=== PATIENT | female | born 1960 | race American Indian/Alaskan Native ===

== ENCOUNTER 2018-03-20 02:10 | Inpatient (IN) | payer OTHER ==
[2018-03-20 03:33] LABS: Basophils # (Auto) 0.1 K/mm3 (0.0-0.1); Basophils % (Auto) 0.8 % (0.0-1.8); Eosinophils # (Auto) 0.3 K/mm3 (0.0-0.4); Eosinophils % (Auto) 4.9 % (0.0-4.3); Hematocrit 36.1 % (30.3-42.9); Hemoglobin 11.7 gm/dl (10.1-14.3); Lymphocytes % (Auto) 13.9 % (13.4-35.0); Mean Corpuscular HGB Conc 33 % (30-34); Mean Corpuscular Hemoglobin 30 pg (28-32); Mean Corpuscular Volume 92 fl (79-97); Monocytes # (Auto) 0.6 K/mm3 (0.0-0.8); Monocytes % (Auto) 8.1 % (0.0-7.3); Platelet Count 293 K/mm3 (140-440); Red Blood Count 3.92 M/mm3 (3.65-5.03)
[2018-03-20 04:15] LABS: Alanine Aminotransferase 17 units/L (7-56); Albumin 4.4 g/dL (3.9-5); BUN/Creatinine Ratio 9; Blood Urea Nitrogen 6 mg/dL (7-17); Calcium 9.5 mg/dL (8.4-10.2); Hemolysis Index 0; Lipase 25 units/L (13-60)
[2018-03-20 04:23] LABS: INR 0.88 (0.87-1.13)
[2018-03-20] MEDS ORDERED: CARAFATE PO ONE (06:31)
[2018-03-20] MEDS ORDERED: TYLENOL PO ONE (06:31)
[2018-03-20] MEDS ORDERED: PEPCID IV ONE ×2 (06:31→09:07)
[2018-03-20] MEDS ORDERED: ALUM-MAG HYDROX-SIMETH 200-200-20MG/5ML PO ONE (06:31)
[2018-03-20] MEDS ORDERED: NACL 0.9% 1000 ML 1,000 ML IV ONE (06:31)
--- NOTE | 2018-03-20 06:32 | Emergency Department Report ---
ED Chest Pain HPI - General Chief Complaint: Chest Pain Stated Complaint: STOMACH PAIN CHEST DISCOMFORT Time Seen by Provider: 03/20/18 06:25 Source: patient, RN notes reviewed Mode of arrival: Ambulatory Limitations: No Limitations - History of Present Illness Initial Comments: This is a 57-year-old female who is not known to this provider previously, does not have a local primary care doctor, past medical history includes diabetes, GERD, hypertension, high cholesterol, surgical history for and hysterectomy. Presents to the ER with burning lower abdominal pain which radiates up to her chest. It started at 9:00 last night. Her symptoms are constant. They do not have any exacerbating or relieving factors. She denies nausea, vomiting, diarrhea, constipation, urinary symptoms, fevers, chills, DVT , pulmonary embolus risk factors. No recent aspirin use or cocaine use. MD Complaint: chest pain, other -: Gradual Onset: during rest Pain Location: substernal Pain Radiation: abdomen Quality: other Consistency: constant Improves With: nothing Worsens With: nothing Aspirin use within the Past 7 Days: (0) No - Related Data Allergies Allergy/AdvReac Type Severity Reaction Status Date / Time No Known Allergies Allergy Unverified 03/20/18 02:39 Heart Score - HEART Score History: Slightly suspicious EKG: Non-specific Age: 45-65 Risk factors: > 3 risk factors or hx of atherosclerotic disease Troponin: < normal limit HEART Score: 4 - Critical Actions Critical Actions: 4-6 pts:12-16.6% risk of adverse cardiac event. Should be admitted ED Review of Systems ROS: Stated complaint: STOMACH PAIN CHEST DISCOMFORT Other details as noted in HPI Constitutional: denies: diaphoresis, fever, malaise Eyes: denies: eye discharge ENT: denies: epistaxis Respiratory: denies: cough Cardiovascular: chest pain Gastrointestinal: abdominal pain Genitourinary: denies: dysuria Musculoskeletal: denies: back pain Skin: denies: lesions Neurological: denies: weakness Psychiatric: denies: anxiety ED Past Medical Hx - Past Medical History Previous Medical History?: Yes Hx Hypertension: Yes Hx Diabetes: Yes Hx GERD: Yes (peptic ulcer) Additional medical history: hypercholesterolemia - Surgical History Past Surgical History?: Yes Additional Surgical History: . hysterectomy - Social History Smoking Status: Never Smoker Substance Use Type: None ED Physical Exam - General Limitations: No Limitations General appearance: alert, in no apparent distress - Head Head exam: Present: atraumatic, normocephalic - Eye Eye exam: Present: normal appearance, EOMI. Absent: nystagmus - ENT ENT exam: Present: normal exam, normal orophraynx, mucous membranes moist, normal external ear exam - Neck Neck exam: Present: normal inspection, full ROM. Absent: tenderness, meningismus - Respiratory Respiratory exam: Present: normal lung sounds bilaterally. Absent: respiratory distress - Cardiovascular Cardiovascular Exam: Present: regular rate, normal rhythm, normal heart sounds. Absent: bradycardia, tachycardia, irregular rhythm, systolic murmur, diastolic murmur, rubs, gallop - GI/Abdominal GI/Abdominal exam: Present: soft. Absent: distended, tenderness, guarding, rebound, rigid, pulsatile mass - Extremities Exam Extremities exam: Present: normal inspection, full ROM, normal capillary refill , other (2+ pulses noted in the bilateral upper, lower extremities. Compartments soft. No long bony tenderness. The pelvis is stable.). Absent: tenderness, pedal edema, joint swelling, calf tenderness - Back Exam Back exam: Present: normal inspection, full ROM. Absent: tenderness, CVA tenderness (R), paraspinal tenderness, vertebral tenderness - Neurological Exam Neurological exam: Present: alert, oriented X3, CN II-XII intact, other ( Extraocular movements intact. Tongue midline. No facial droop. Facial sensation intact to light touch in the V1, V2, V3 distribution bilaterally. 5 and 5 strength in 4 extremities.. Sensation is intact to light touch in 4 extremities.). Absent: motor sensory deficit - Psychiatric Psychiatric exam: Present: normal affect, normal mood - Skin Skin exam: Present: warm, dry, intact, normal color. Absent: rash ED Course Vital Signs 03/20/18 03/20/18 03/20/18 02:26 02:35 04:16 Temperature 98.6 F 98.6 F Pulse Rate 85 85 77 Respiratory 14 20 23 Rate Blood Pressure 150/88 150/88 144/87 O2 Sat by Pulse 99 99 99 Oximetry 03/20/18 03/20/18 03/20/18 04:46 05:16 06:00 Temperature Pulse Rate 79 76 70 Respiratory 19 21 16 Rate Blood Pressure 132/77 125/72 129/74 O2 Sat by Pulse 99 98 100 Oximetry 03/20/18 03/20/18 03/20/18 06:16 06:46 08:32 Temperature Pulse Rate 70 70 Respiratory 18 16 20 Rate Blood Pressure 129/74 147/76 O2 Sat by Pulse 100 98 Oximetry - Reevaluation(s) Reevaluation #1: 03/20/18 11:24 Hospital physician, Dr. Stone has accepted the patient to the medical service. Lactic acid level is unremarkable JUAN LUIS score - Juan Luis Score Age > 65: (0) No Aspirin use within the Past 7 Days: (0) No 3 or more CAD Risk Factors: (1) Yes 2 or more Angina events in past 24 hrs: (0) No Known CAD with more than 50% Stenosis: (0) No Elevated Cardiac Markers: (0) No ST Deviation Greater than 0.5mm: (0) No JUAN LUIS Score: 1 ED Medical Decision Making - Lab Data Result diagrams: 03/20/18 03:15 03/20/18 03:15 Vital Signs 03/20/18 03/20/18 03/20/18 02:26 02:35 04:16 Temperature 98.6 F 98.6 F Pulse Rate 85 85 77 Respiratory 14 20 23 Rate Blood Pressure 150/88 150/88 144/87 O2 Sat by Pulse 99 99 99 Oximetry 03/20/18 03/20/18 03/20/18 04:46 05:16 06:00 Temperature Pulse Rate 79 76 70 Respiratory 19 21 16 Rate Blood Pressure 132/77 125/72 129/74 O2 Sat by Pulse 99 98 100 Oximetry 03/20/18 03/20/18 06:16 06:46 Temperature Pulse Rate 70 70 Respiratory 18 16 Rate Blood Pressure 129/74 147/76 O2 Sat by Pulse 100 98 Oximetry Labs 03/20/18 03/20/18 03/20/18 03:15 03:15 03:15 WBC 6.8 RBC 3.92 Hgb 11.7 Hct 36.1 MCV 92 MCH 30 MCHC 33 RDW 15.0 Plt Count 293 Lymph % (Auto) 13.9 [place] % (Auto) 8.1 H Eos % (Auto) 4.9 H Baso % (Auto) 0.8 Lymph # 1.0 L [place] # 0.6 Eos # 0.3 Baso # 0.1 Seg Neutrophils % 72.3 H Seg Neutrophils # 4.9 PT 12.4 INR 0.88 Sodium 139 Potassium 3.9 Chloride 103.2 Carbon Dioxide 25 Anion Gap 15 BUN 6 L Creatinine 0.7 Estimated GFR > 60 BUN/Creatinine Ratio 9 Glucose 143 H Calcium 9.5 Total Bilirubin 0.20 AST 19 ALT 17 Alkaline Phosphatase 69 Troponin T < 0.010 Total Protein 7.3 Albumin 4.4 Albumin/Globulin Ratio 1.5 Lipase 25 Urine Color Urine Turbidity Urine pH Ur Specific [place] Urine Protein Urine Glucose (UA) Urine Ketones Urine Blood Urine Nitrite Urine Bilirubin Urine Urobilinogen Ur Leukocyte Esterase Urine WBC (Auto) Urine RBC (Auto) Urine Mucus 03/20/18 03/20/18 03/20/18 06:05 07:10 08:42 WBC RBC Hgb Hct MCV MCH MCHC RDW Plt Count Lymph % (Auto) [place] % (Auto) Eos % (Auto) Baso % (Auto) Lymph # [place] # Eos # Baso # Seg Neutrophils % Seg Neutrophils # PT INR Sodium Potassium Chloride Carbon Dioxide Anion Gap BUN Creatinine Estimated GFR BUN/Creatinine Ratio Glucose Calcium Total Bilirubin AST ALT Alkaline Phosphatase Troponin T < 0.010 < 0.010 Total Protein Albumin Albumin/Globulin Ratio Lipase Urine Color Straw Urine Turbidity Clear Urine pH 5.0 Ur Specific [place] 1.004 Urine Protein <15 mg/dl Urine Glucose (UA) Neg Urine Ketones Neg Urine Blood Neg Urine Nitrite Neg Urine Bilirubin Neg Urine Urobilinogen < 2.0 Ur Leukocyte Esterase Neg Urine WBC (Auto) 1.0 Urine RBC (Auto) 3.0 Urine Mucus Few - EKG Data -: EKG Interpreted by Wa - EKG Data 03/20/18 10:10 EKG #1 demonstrates normal sinus, 81 bpm, left axis deviation, ID interval prolonged, abnormal EKG, this EKG is not a STEMI, EKG #2 was unchanged. - Radiology Data Radiology results: report reviewed, image reviewed CT scan of the chest is negative for pulmonary embolus, aortic disease, significant disease. CT scan of the abdomen and pelvis suggests a small bowel obstruction. - Medical Decision Making Differential diagnosis, including but not limited to: GERD, gastritis, hiatal hernia, aortic disease, acute coronary syndrome, pulmonary embolus, pneumonia, intra-abdominal infection, constipation Assessment and plan: 57-year-old female with multiple cardiovascular risk factors, abnormal EKG, no recent cardiac risk stratification, elevated heart score, and also nonspecific abdominal pain. She is afebrile with reassuring vital signs and no significant abdominal tenderness. She is not vomiting, she is passing gas, and she is tolerating oral feeds. Her clinical history and exam do not appear to be consistent with small bowel obstruction, although her CT scan has suggested that this may be a possibility. She is amenable to hospital admission for cardiac risk stratification as well as serial abdominal exams. I have contacted the general surgeon on-call, Dr. Dmuont, who agrees to follow in consultation, we have placed a page out to the medical service for hospitalist admission. Given the lack of vomiting, passing gas and stool, ability to tolerate oral feeds, it is my pain that the risks of an nasogastric tube outweigh the benefits , and I will not have one inserted at this point in time. Aspirin will be held at this time in case the patient has a change in her clinical abdominal examination. Critical care attestation.: If time is entered above; I have spent that time in minutes in the direct care of this critically ill patient, excluding procedure time. ED Disposition Clinical Impression: Chest pain, Abdominal pain Disposition: [id number] OP ADMIT IP TO THIS HOSP Is pt being admited?: Yes Does the pt Need Aspirin: No Condition: Good Instructions: Chest Pain (ED) Referrals: PRIMARY CARE, [Primary Care Provider] - 3-5 Days
[2018-03-20 07:24] LABS: Bilirubin,Urine NEG (Negative); Blood,Urine NEG (Negative); Color,Urine Straw (Yellow); Mucus,Urine FEW /HPF; Protein,Urine <15 mg/dL mg/dL (Negative); Urobilinogen,Urine < 2.0 mg/dL (<2.0)
[2018-03-20] MEDS ORDERED: ALUM-MAG HYDROX-SIMETH 200-200-20MG/5ML ONE (09:05)
[2018-03-20] MEDS ORDERED: CARAFATE ONE (09:05)
[2018-03-20] MEDS ORDERED: TYLENOL ONE (09:06)
--- NOTE | 2018-03-20 09:28 | Cat Scan Report ---
FINAL REPORT EXAM: CT ANGIO CHEST HISTORY: cp TECHNIQUE: CT angiography of the chest was performed. 100 cc Omnipaque 350 IV was administered. Axial images and coronal and sagittal reformatted images were obtained. PRIORS: None. FINDINGS: There is no aortic dissection seen. There are no filling defects seen within the pulmonary arterial circulation to suggest pulmonary embolism. There is no significant mediastinal or hilar mass seen. There are no pleural effusions seen. The lungs are clear. There is no pneumothorax seen. IMPRESSION: There is no pulmonary embolism or aortic dissection seen.
--- NOTE | 2018-03-20 09:37 | Cat Scan Report ---
FINAL REPORT EXAM: CT ABDOMEN PELVIS W CON HISTORY: lower abdominal pain radiating to the chest TECHNIQUE: CT abdomen and pelvis performed. Images extend from diaphragm to pubic symphysis. IV contrast was administered. Axial images and coronal and sagittal reformatted images were obtained. PRIORS: None. FINDINGS: There are mid to distal dilated small bowel loops with abrupt caliber transition in the pelvic region. Findings are consistent with small bowel obstruction. There is no free intraperitoneal air. There are no abnormal fluid collections seen. The visualized liver, spleen, pancreas, adrenal glands and kidneys demonstrate no significant abnormalities. There is no abdominal aortic aneurysm. The appendix is normal. The bladder is unremarkable. IMPRESSION: Findings are worrisome for high-grade mid to distal small bowel obstruction.
[2018-03-20] MEDS ORDERED: ZOFRAN IV PRN (12:49)
[2018-03-20] MEDS ORDERED: TYLENOL PO PRN (12:49)
[2018-03-20] MEDS ORDERED: PROVENTIL IH PRN (12:49)
[2018-03-20] MEDS ORDERED: SODIUM CHLORIDE FLUSH SYRINGE 10 ML IV PRN (12:49)
[2018-03-20] MEDS: REGLAN PO SCH ×2 (16:36→21:54)
--- NOTE | 2018-03-20 19:46 | History and Physical Report ---
History of Present Illness Date of admission: 03/20/18 12:49 Chief complaint: It hurts right here History of present illness: 57 YO Female with HTN, DM, HLD, Obesity, PUD, GERD presents to ED for evaluation. Pt states that she has experienced pain in her abdomen and in her chest. Upon evaluation, the patient localized the epigastric area as the site of her pain. Pt states that she has experienced abdominal pain over the past 1 day, with persistent symptoms over the past 12 hours. Pain is 5/10, dull, constant, radiates from the loser abdomen to the epigastric region, no exacerbating or alleviating factors. Pt denies fever, chills, chest pain, nausea , vomiting, diarrhea, constipation, urinary symptoms, fevers, chills, prolonged travel/immobility, skin rash, unilateral leg swelling, calf pain, BRBPR, ingestion of food/water from new or different sources, individual/family history of DVT/PE/Blood Clotting disorders. Pt acknowledges flatus and bowel movement within the past 24 hours. Pt seen and evaluated in ED and found to have evidence of PSBO on CT Abdomen pelvis. Pt declines NGT at time of exam. Surgery consulted in ED. Past History Past Medical History: diabetes, GERD, hypertension, hyperlipidemia, other (PUD) Past Surgical History: , hysterectomy Social history: single. denies: smoking, alcohol abuse, prescription drug abuse Family history: diabetes, hypertension Medications and Allergies Allergies Allergy/AdvReac Type Severity Reaction Status Date / Time No Known Allergies Allergy Unverified 03/20/18 02:39 Active Meds: Active Medications Acetaminophen (Tylenol) 650 mg PO Q4H PRN PRN Reason: Pain MILD(1-3)/Fever >100.5/CEJA Last Admin: 03/20/18 16:38 Dose: 650 mg Albuterol (Proventil) 2.5 mg IH Q4H PRN PRN Reason: Shortness Of Breath Metoclopramide HCl (Reglan) 5 mg PO ACHS NAS Last Admin: 03/20/18 16:36 Dose: 5 mg Ondansetron HCl (Zofran) 4 mg IV Q8H PRN PRN Reason: Nausea And Vomiting Sodium Chloride (Sodium Chloride Flush Syringe 10 Ml) 10 ml IV BID NAS Sodium Chloride (Sodium Chloride Flush Syringe 10 Ml) 10 ml IV PRN PRN PRN Reason: LINE FLUSH Review of Systems Constitutional: no weight loss, no weight gain, no fever, no chills Ears, nose, mouth and throat: no ear pain, no ear discharge, no tinnitis, no decreased hearing, no nose pain, no nasal congestion Breasts: no change in shape, no swelling, no mass Cardiovascular: no chest pain, no orthopnea, no palpitations, no rapid/ irregular heart beat Respiratory: no cough, no cough with sputum, no excessive sputum, no hemoptysis , no shortness of breath Gastrointestinal: abdominal pain, no nausea, no vomiting, no diarrhea, no constipation, no hematemesis, no coffee ground emesis, no BRBPR, no melena, no hematochezia, no loss of appetite, no early satiety Genitourinary Female: no pelvic pain, no flank pain, no menorrhagia, no dysuria Rectal: no pain, no incontinence, no bleeding Musculoskeletal: no neck stiffness, no neck pain, no shooting arm pain, no arm numbness/tingling, no low back pain, no shooting leg pain Integumentary: no rash, no pruritis, no redness, no sores, no wounds, no bullae , no lesions, no darkening of skin, no depigmentation Neurological: no head injury, no transient paralysis, no paralysis, no weakness , no parathesias, no numbness, no tingling, no seizures, no headaches, no migraines Psychiatric: no anxiety, no memory loss, no change in sleep habits, no sleep disturbances, no insomnia, no hypersomnia, no change in appetite, no change in libido, no suicidal ideation Endocrine: no cold intolerance, no heat intolerance, no polyphagia, no excessive thirst, no polydipsia, no polyuria, no nocturia Hematologic/Lymphatic: no easy bruising, no easy bleeding, no lymphadenopathy, no lymphedema Allergic/Immunologic: no urticaria, no allergic rhinitis, no wheezing, no persistent infections, no anaphylaxis, no angioedema Exam - Constitutional Vitals: Temp Pulse Resp BP Pulse Ox 98.0 F 70 18 129/72 98 03/20/18 16:20 03/20/18 16:20 03/20/18 16:20 03/20/18 16:20 03/20/18 16:20 General appearance: Present: mild distress. Absent: no acute distress - EENT Eyes: Absent: PERRL, EOM intact, irregular pupil - Neck Neck: Present: supple, normal ROM - Respiratory Respiratory effort: normal Respiratory: bilateral: CTA - Cardiovascular Heart Sounds: Present: S1 & S2. Absent: rub, click - Extremities Extremities: pulses symmetrical, No edema Peripheral Pulses: within normal limits - Abdominal General gastrointestinal: Present: soft, non-distended, hypoactive bowel sounds. Absent: hepatomegaly, splenomegaly, mass, hernia Female genitourinary: Present: normal - Integumentary Integumentary: Present: clear, warm, dry - Musculoskeletal Musculoskeletal: gait normal, strength equal bilaterally - Psychiatric Psychiatric: appropriate mood/affect, intact judgment & insight - Neurologic Neurologic: CNII-XII intact, moves all extremities Results - Labs CBC & Chem 7: 03/20/18 03:15 03/20/18 03:15 Labs: Abnormal lab results 03/20/18 03/20/18 Range/Units 03:15 03:15 [place] % (Auto) 8.1 H (0.0-7.3) % Eos % (Auto) 4.9 H (0.0-4.3) % Lymph # 1.0 L (1.2-5.4) K/mm3 Seg Neutrophils % 72.3 H (40.0-70.0) % BUN 6 L (7-17) mg/dL Glucose 143 H (65-100) mg/dL Assessment and Plan - Patient Problems (1) SBO (small bowel obstruction) Current Visit: Yes Status: Acute Plan to address problem: CT ABdomen pelvis, surgery consulted,Pt declined NG Tube at time of exam, IVF resuscitation, bowel rest (2) Abdominal pain Current Visit: Yes Status: Acute Qualifiers: Abdominal location: epigastric Qualified Code(s): R10.13 - Epigastric pain Plan to address problem: pain control, supportive care, serial abdominal exam, CT Abdomen/Pelvis, bowel rest, (3) DVT prophylaxis Current Visit: Yes Status: Acute Plan to address problem: SCD to BLE while in bed,
--- NOTE | 2018-03-20 20:36 | Consultation ---
HISTORY OF PRESENT ILLNESS: This patient was seen in the Emergency Room this morning. She is a 57-year-old black female. Apparently, she is a 73.8 kilograms. Her BSA is 1.8. She comes because a feeling of pain in the epigastrium and mid left upper quadrant radiating to the chest area. She never had this before. She felt nauseated. She vomited on one or two occasions and bleeding per rectum. She has good bowel movement today. She had no bleeding either. She was seen by our Emergency Room doctor. She had chest CT abdomen and pelvis CT that showed no evidence of any aortic dissection or any pulmonary embolism. Abdominal CT was negative except for? high-grade mid to distal small-bowel obstruction, although on a KUB, nothing specific that I could see. She is known case of diabetes. Her CBC showed a white count of 6.8, hematocrit 36. The protime is 12.4. The INR is 0.88, potassium 3.9, the BUN is 6, creatinine is 0.7, alkaline phosphatase was negative. The patient gives a history of multiple sections. PHYSICAL EXAMINATION: GENERAL: At this point showed a well preserved morbidly obese black female. She is in no distress. She told me that the pain is almost gone now. HEAD AND NECK: Negative. CHEST: Clear. HEART: Sound normal. BREASTS: Symmetrical. No evidence of any specific masses. ABDOMEN: Soft, protuberant, and benign to me. EXTREMITIES: Showed no edema. IMPRESSION: Epigastric pain being improved markedly, nausea and vomiting, the etiology of which is unknown. I believe this need to be addressed further by observation as per our emergency room physician and we will go from there. JOB# [id number] LEO/INA
[2018-03-20] MEDS: SODIUM CHLORIDE FLUSH SYRINGE 10 ML IV SCH (21:54)
[2018-03-21] MEDS: REGLAN PO SCH ×2 (09:01→12:30)
--- NOTE | 2018-03-21 11:07 | XRay Report ---
FINAL REPORT EXAM: XR ABDOMEN 1V AP HISTORY: Ileus ,abdomen pain TECHNIQUE: AP abdominal radiograph. PRIORS: CT of the abdomen and pelvis from 03/20/2018. FINDINGS: No bowel obstruction. No organomegaly or masses. No abnormal calcifications. No acute osseous abnormality. IMPRESSION: No acute intra-abdominal abnormality.
[2018-03-21] MEDS ORDERED: AFLURIA QUAD 2018-2019 SYRINGE IM ONE (12:00)
--- NOTE | 2018-03-21 15:08 | Progress Note ---
Assessment and Plan / SBO (small bowel obstruction) CT ABdomen pelvis showed high grade KAMARI surgery consulted,Pt declined NG Tube at time of exam, IVF resuscitation, repeat abdominal xry showed no abnormality, had BM this am will start on diet, if tolerated will d/c rossana am /Abdominal pain Due to SBO pain control, supportive care, serial abdominal exam /Obesity, dietary recommendation / DVT prophylaxis SCD to BLE while in bed, CT abdomen/pelvis: Findings are worrisome for high-grade mid to distal small bowel obstruction. Subjective Date of service: 03/21/18 Interval history: Pt seen and examined Had BM this am and passing gas improved abdominal pain Objective - Constitutional Vitals: Vital Signs - 12hr 03/21/18 03/21/18 03/21/18 06:20 07:54 11:54 Temperature 98.2 F 98.4 F Pulse Rate 60 67 Respiratory 18 16 Rate Blood Pressure 108/55 127/64 O2 Sat by Pulse 100 100 97 Oximetry General appearance: Present: no acute distress, obese - EENT Eyes: PERRL, EOM intact ENT: hearing intact, clear oral mucosa Ears: bilateral: normal - Neck Neck: supple, normal ROM - Respiratory Respiratory effort: normal Respiratory: bilateral: CTA - Cardiovascular Rhythm: regular Heart Sounds: Present: S1 & S2. Absent: gallop, rub Extremities: pulses intact, No edema, normal color, Full ROM - Gastrointestinal General gastrointestinal: Present: soft, non-tender, non-distended, normal bowel sounds - Integumentary Integumentary: clear, warm, dry - Musculoskeletal Musculoskeletal: 1, strength equal bilaterally - Neurologic Neurologic: moves all extremities - Psychiatric Psychiatric: memory intact, appropriate mood/affect, intact judgment & insight - Labs CBC & Chem 7: 03/22/18 03:50 03/22/18 03:50 - Imaging and cardiology CT scan - abdomen: report reviewed
[2018-03-21] MEDS: SODIUM CHLORIDE FLUSH SYRINGE 10 ML IV SCH (19:30)
[2018-03-21] MEDS: D5NS 1,000 ML IV SCH (23:35)
[2018-03-22] MEDS: SODIUM CHLORIDE FLUSH SYRINGE 10 ML IV SCH ×2 (00:34→09:48)
[2018-03-22 05:14] LABS: Eosinophils # (Auto) 0.5 K/mm3 (0.0-0.4); Eosinophils % (Auto) 13.9 % (0.0-4.3); Hematocrit 32.3 % (30.3-42.9); Hemoglobin 10.7 gm/dl (10.1-14.3); Lymphocytes # (Auto) 1.3 K/mm3 (1.2-5.4); Mean Corpuscular HGB Conc 33 % (30-34); Mean Corpuscular Hemoglobin 30 pg (28-32); Mean Corpuscular Volume 92 fl (79-97); Monocytes # (Auto) 0.5 K/mm3 (0.0-0.8); Platelet Count 267 K/mm3 (140-440); Red Blood Count 3.52 M/mm3 (3.65-5.03); Red Cell Distribution Width 14.5 % (13.2-15.2)
[2018-03-22 05:31] LABS: BUN/Creatinine Ratio 13; Blood Urea Nitrogen 8 mg/dL (7-17); Calcium 8.4 mg/dL (8.4-10.2); Hemolysis Index 2
[2018-03-22] MEDS: D5NS 1,000 ML IV SCH (09:45)
--- NOTE | 2018-03-22 11:03 | Progress Note ---
Subjective Patient Reports: Positive: feels better, flatus, bowel movement Narrative: feels much better , NO GI sx, no nausea on oft diet , can go home talked to case management , to see me in 2 weeks and PRN Objective Vital Signs - 12hr 03/22/18 05:24 Temperature 98.4 F Pulse Rate 81 Respiratory 18 Rate Blood Pressure 133/72 O2 Sat by Pulse 94 Oximetry - Labs 03/22/18 03:50 03/22/18 03:50 Diabetes panel 03/22/18 Range/Units 03:50 Sodium 138 (137-145) mmol/L Potassium 3.9 (3.6-5.0) mmol/L Chloride 102.6 (98-107) mmol/L Carbon Dioxide 27 (22-30) mmol/L BUN 8 (7-17) mg/dL Creatinine 0.6 L (0.7-1.2) mg/dL Glucose 110 H (65-100) mg/dL Calcium 8.4 (8.4-10.2) mg/dL Calcium panel 03/22/18 Range/Units 03:50 Calcium 8.4 (8.4-10.2) mg/dL Pituitary panel 03/22/18 Range/Units 03:50 Sodium 138 (137-145) mmol/L Potassium 3.9 (3.6-5.0) mmol/L Chloride 102.6 (98-107) mmol/L Carbon Dioxide 27 (22-30) mmol/L BUN 8 (7-17) mg/dL Creatinine 0.6 L (0.7-1.2) mg/dL Glucose 110 H (65-100) mg/dL Calcium 8.4 (8.4-10.2) mg/dL Adrenal panel 03/22/18 Range/Units 03:50 Sodium 138 (137-145) mmol/L Potassium 3.9 (3.6-5.0) mmol/L Chloride 102.6 (98-107) mmol/L Carbon Dioxide 27 (22-30) mmol/L BUN 8 (7-17) mg/dL Creatinine 0.6 L (0.7-1.2) mg/dL Glucose 110 H (65-100) mg/dL Calcium 8.4 (8.4-10.2) mg/dL
--- NOTE | 2018-03-22 11:38 | Discharge Summary ---
Providers - Providers Date of Admission: 03/20/18 12:49 Date of discharge: 03/22/18 Attending physician: SALVADOR PEDRAZA 03/20/18 10:06 Consult to Physician [CONS] Urgent Comment: Consulting Provider: EDVIN SANCHEZ Physician Instructions: Reason For Exam: sbo Primary care physician: [employer] Hospitalization Reason for admission: abdominal pain Condition: Good Hospital course: 57 YO Female with HTN, DM, HLD, Obesity, PUD, GERD presents to ED for evaluation of pain in her abdomen and in her chest. Patient acknowledged flatus and bowel movement within the past 24 hours. Pt seen and evaluated in ED and found to have evidence of PSBO on CT Abdomen pelvis. Pt declined NGT , Surgery consulted in ED. She was monitored with serial abdominal exam. She had BM next morning and repeat abdominal xry showed no acute process. She was tolerating diet and was advanced her diet before discharge. GS recommended to f/u outpt. She was discharged home in stable condition. Discharge diagnosis and management: / SBO (small bowel obstruction) CT ABdomen pelvis showed high grade KAMARI surgery consulted, Pt declined NG Tube at time of exam, given IVF resuscitation , managed conservatively and patient symptom improved repeat abdominal xry showed no abnormality, Patient had BM and was tolerating diet will f/u with GS in two weeks /Abdominal pain, resolved Due to SBO managed with IV meds for pain control, IV fluid, supportive care, serial abdominal exam /Obesity, dietary recommendation /Chronic Issues - HTN, DMtype 2, HLD - will resume her home meds ( lisinopril, metformin and lipitor) / DVT prophylaxis SCD to BLE while in bed, Radiological data: CT abdomen/pelvis 03/20/18: Findings are worrisome for high-grade mid to distal small bowel obstruction. Abdominal XRY 03/21/18: No acute intra-abdominal abnormality. CTA chest 03/20/18: There is no pulmonary embolism or aortic dissection seen. Physical exam: General appearance: Present: no acute distress, obese - EENT Eyes: PERRL, EOM intact ENT: hearing intact, clear oral mucosa Ears: bilateral: normal - Neck Neck: supple, normal ROM - Respiratory Respiratory effort: normal Respiratory: bilateral: CTA - Cardiovascular Rhythm: regular Heart Sounds: Present: S1 & S2. Absent: gallop, rub Extremities: pulses intact, No edema, normal color, Full ROM - Gastrointestinal General gastrointestinal: Present: soft, non-tender, non-distended, normal bowel sounds - Integumentary Integumentary: clear, warm, dry - Musculoskeletal Musculoskeletal: 1, strength equal bilaterally - Neurologic Neurologic: moves all extremities - Psychiatric Psychiatric: memory intact, appropriate mood/affect, intact judgment & insight Disposition: DC-01 TO HOME OR SELFCARE Time spent for discharge: 32 minutes Core Measure Documentation - Palliative Care Palliative Care/ Comfort Measures: Not Applicable - Core Measures Any of the following diagnoses?: none Exam - Constitutional Vitals: Temp Pulse Resp BP Pulse Ox 98.4 F 81 18 133/72 94 03/22/18 05:24 03/22/18 05:24 03/22/18 05:24 03/22/18 05:24 03/22/18 05:24 Plan Activity: advance as tolerated Weight Bearing Status: Weight Bear as Tolerated Diet: low fat, diabetic Additional Instructions: f/u with Dr Martin in 2 weeks Follow up with: PRIMARY CARE, [Primary Care Provider] - 3-5 Days Prescriptions: Lisinopril [Zestril TAB] 5 mg PO QDAY #30 tablet metFORMIN [Glucophage] 500 mg PO BIDDIAB #60 tablet Pantoprazole 40 mg PO DAILY #30 Polyethylene Glycol 3350 [Miralax 3350] 17 gm PO QDAY PRN #10 packet PRN Reason: Constipation Rosuvastatin Calcium 10 mg PO DAILY #30
[2018-03-22 13:29] VITALS: BP 137/72
[2018-03-22] MEDS ORDERED: ZESTRIL PO SCH (14:00)
[2018-03-22] MEDS ORDERED: GLUCOPHAGE PO SCH (17:00)
== END 2018-03-22 13:35 | disposition home or self-care (01) | DRG 389 ==
LOC: ED 02:10 → 3A 12:49
PROVIDERS: ADMIT Internal Medicine; ATTEND Internal Medicine
PROC: 3E0234Z Introduction of Serum, Toxoid and Vaccine into Muscle, Percutaneous Approach (ICD-10-PCS; principal; 2018-03-21)
DX: K56.600 Partial intestinal obstruction, unspecified as to cause (principal); Z68.41 Body mass index [BMI] 40.0-44.9, adult; E11.9 Type 2 diabetes mellitus without complications; K21.9 Gastro-esophageal reflux disease without esophagitis; I10 Essential (primary) hypertension; E78.00 Pure hypercholesterolemia, unspecified; E78.5 Hyperlipidemia, unspecified; E66.9 Obesity, unspecified; K27.9 Peptic ulcer, site unspecified, unspecified as acute or chronic, without hemorrhage or perforation; Z83.3 Family history of diabetes mellitus; Z79.84 Long term (current) use of oral hypoglycemic drugs; Z90.710 Acquired absence of both cervix and uterus; Z23 Encounter for immunization
CPT/HCPCS: 36415; 71275; 74018; 74177; 80048; 80053; 81001; 82140; 82150; 83690; 84484; 85025; 85610; 90686; 93005; 93010; 94760; 96361; 96374; J7030; J7042; Q9967

== ENCOUNTER 2022-01-21 12:21 | Emergency (ER) | payer SELFPAY ==
[2022-01-21 13:15] VITALS: BP 139/72
--- NOTE | 2022-01-21 13:23 | Emergency Department Report ---
ED Abdominal Pain HPI - General Chief Complaint: Urogenital-Female Stated Complaint: BACK PAIN/DIZZY PUI?: No Time Seen by Provider: 01/21/22 13:23 Source: patient Mode of arrival: Ambulatory Limitations: No Limitations - History of Present Illness Initial Comments: pt reports lower back pain and suprapubic pain x3 days with increased urination. pt denies dysuria MD Complaint: abdominal pain -: Gradual, days(s) Severity scale (0 -10): 8 - Related Data Previous Rx's Medication Instructions Recorded Last Taken Type Pantoprazole 40 mg PO DAILY #30 03/22/18 Unknown Rx Rosuvastatin Calcium 10 mg PO DAILY #30 03/22/18 Unknown Rx lisinopriL [Zestril TAB] 5 mg PO QDAY #30 tablet 03/22/18 Unknown Rx metFORMIN [Glucophage] 500 mg PO BIDDIAB #60 tablet 03/22/18 Unknown Rx polyethylene glycoL 3350 [Miralax 17 gm PO QDAY PRN #10 packet 03/22/18 Unknown Rx 3350] Allergies Allergy/AdvReac Type Severity Reaction Status Date / Time No Known Allergies Allergy Unverified 03/20/18 02:39 ED Review of Systems ROS: Stated complaint: BACK PAIN/DIZZY Other details as noted in HPI Comment: All other systems reviewed and negative ED Past Medical Hx - Past Medical History Previous Medical History?: Yes Hx Hypertension: Yes Hx Congestive Heart Failure: No Hx Diabetes: Yes Hx GERD: Yes (peptic ulcer) Hx Asthma: Yes Additional medical history: hypercholesterolemia - Surgical History Past Surgical History?: Yes Additional Surgical History: . hysterectomy - Family History Family history: no significant - Social History Smoking Status: Never Smoker Substance Use Type: None - Medications Home Medications: Home Medications Medication Instructions Recorded Confirmed Last Taken Type Pantoprazole 40 mg PO DAILY #30 03/22/18 Unknown Rx Rosuvastatin Calcium 10 mg PO DAILY #30 03/22/18 Unknown Rx lisinopriL [Zestril TAB] 5 mg PO QDAY #30 tablet 03/22/18 Unknown Rx metFORMIN [Glucophage] 500 mg PO BIDDIAB #60 tablet 03/22/18 Unknown Rx polyethylene glycoL 3350 [Miralax 17 gm PO QDAY PRN #10 packet 03/22/18 Unknown Rx 3350] ED Physical Exam - General Limitations: No Limitations General appearance: alert, in no apparent distress - Head Head exam: Present: atraumatic, normocephalic - Eye Eye exam: Present: normal appearance - ENT ENT exam: Present: mucous membranes moist - Neck Neck exam: Present: normal inspection - Respiratory Respiratory exam: Present: normal lung sounds bilaterally. Absent: respiratory distress - Cardiovascular Cardiovascular Exam: Present: regular rate, normal rhythm. Absent: systolic murmur, diastolic murmur, rubs, gallop - GI/Abdominal GI/Abdominal exam: Present: soft, normal bowel sounds - Extremities Exam Extremities exam: Present: normal inspection - Back Exam Back exam: Present: normal inspection - Neurological Exam Neurological exam: Present: alert, oriented X3 - Psychiatric Psychiatric exam: Present: normal affect, normal mood - Skin Skin exam: Present: warm, dry, intact, normal color. Absent: rash ED Course Vital Signs 01/21/22 13:10 Temperature 99.0 F Pulse Rate 75 Respiratory 12 Rate Blood Pressure 139/72 [Right] O2 Sat by Pulse 99 Oximetry Critical care attestation.: If time is entered above; I have spent that time in minutes in the direct care of this critically ill patient, excluding procedure time. ED Disposition Clinical Impression: Abdominal pain Disposition: 30 STILL A PATIENT Is pt being admited?: No Does the pt Need Aspirin: No Condition: Stable
[2022-01-21 14:29] LABS: Basophils # (Auto) 0.1 K/mm3 (0.0-0.1); Basophils % (Auto) 2.8 % (0.0-1.8); Eosinophils # (Auto) 0.4 K/mm3 (0.0-0.4); Eosinophils % (Auto) 12.7 % (0.0-4.3); Hematocrit 32.9 % (30.3-42.9); Hemoglobin 10.5 gm/dl (10.1-14.3); Lymphocytes # (Auto) 1.3 K/mm3 (1.2-5.4); Lymphocytes % (Auto) 35.8 % (13.4-35.0); Mean Corpuscular HGB Conc 32 % (30-34); Mean Corpuscular Volume 93 fl (79-97); Monocytes # (Auto) 0.3 K/mm3 (0.0-0.8); Monocytes % (Auto) 9.8 % (0.0-7.3); Platelet Count 295 K/mm3 (140-440); Red Blood Count 3.55 M/mm3 (3.65-5.03); Red Cell Distribution Width 13.3 % (13.2-15.2)
[2022-01-21 15:52] LABS: Alanine Aminotransferase 10 units/L (7-56); Albumin 4.4 g/dL (3.9-5); BUN/Creatinine Ratio 14; Blood Urea Nitrogen 11 mg/dL (7-17); Calcium 9.5 mg/dL (8.4-10.2); Hemolysis Index 19
[2022-01-21 15:57] LABS: Bilirubin,Direct < 0.2 mg/dL (0-0.2)
--- NOTE | 2022-01-21 17:31 | Cat Scan Report ---
CT ABDOMEN AND PELVIS WITHOUT CONTRAST INDICATION / CLINICAL INFORMATION: lower abdominal pain. TECHNIQUE: Axial CT images were obtained through the abdomen and pelvis without IV contrast. All CT scans at this location are performed using CT dose reduction for ALARA by means of automated exposure control. COMPARISON: 03/20/2018 FINDINGS: LOWER CHEST: No significant abnormality. LIVER: No significant abnormality. GALLBLADDER: No significant abnormality. BILE DUCTS: No significant abnormality. PANCREAS: No significant abnormality. SPLEEN: No significant abnormality. ADRENALS: No significant abnormality. RIGHT KIDNEY / URETER: No significant abnormality. LEFT KIDNEY / URETER: No significant abnormality. STOMACH / SMALL BOWEL: No significant abnormality. COLON: No significant abnormality. APPENDIX: No significant abnormality. PERITONEUM: No free fluid. No free air. No fluid collection. LYMPH NODES: No significant adenopathy. AORTA / ARTERIES: No significant abnormality. IVC / VEINS: No significant abnormality. URINARY BLADDER: No significant abnormality. REPRODUCTIVE ORGANS: No significant abnormality. ADDITIONAL FINDINGS: None. SKELETAL SYSTEM: No significant abnormality. IMPRESSION: 1. There is no obstruction, inflammation, or free air. There are no abnormal fluid collections. Signer Name: Gokul Dickey MD Signed: 01/21/2022 5:27 PM Workstation Name: [id number]
--- NOTE | 2022-01-21 18:49 | Emergency Department Report ---
ED General Adult HPI - General Chief complaint: Urogenital-Female Stated complaint: BACK PAIN/DIZZY PUI?: No Time Seen by Provider: 01/21/22 13:23 Source: patient Mode of arrival: Ambulatory Limitations: No Limitations - History of Present Illness Severity scale (0 -10): 8 - Related Data Previous Rx's Medication Instructions Recorded Last Taken Type Pantoprazole 40 mg PO DAILY #30 03/22/18 Unknown Rx Rosuvastatin Calcium 10 mg PO DAILY #30 03/22/18 Unknown Rx lisinopriL [Zestril TAB] 5 mg PO QDAY #30 tablet 03/22/18 Unknown Rx metFORMIN [Glucophage] 500 mg PO BIDDIAB #60 tablet 03/22/18 Unknown Rx polyethylene glycoL 3350 [Miralax 17 gm PO QDAY PRN #10 packet 03/22/18 Unknown Rx 3350] Acetaminophen/Codeine [Tylenol 1 tab PO Q6H PRN 2 Days #8 tab 01/21/22 Unknown Rx /Codeine # 3 tab] Allergies Allergy/AdvReac Type Severity Reaction Status Date / Time No Known Allergies Allergy Unverified 03/20/18 02:39 ED Review of Systems ROS: Stated complaint: BACK PAIN/DIZZY Other details as noted in HPI ED Past Medical Hx - Past Medical History Previous Medical History?: Yes Hx Hypertension: Yes Hx Congestive Heart Failure: No Hx Diabetes: Yes Hx GERD: Yes (peptic ulcer) Hx Asthma: Yes Additional medical history: hypercholesterolemia - Surgical History Past Surgical History?: Yes Additional Surgical History: . hysterectomy - Social History Smoking Status: Never Smoker Substance Use Type: None - Medications Home Medications: Home Medications Medication Instructions Recorded Confirmed Last Taken Type Pantoprazole 40 mg PO DAILY #30 03/22/18 Unknown Rx Rosuvastatin Calcium 10 mg PO DAILY #30 03/22/18 Unknown Rx lisinopriL [Zestril TAB] 5 mg PO QDAY #30 tablet 03/22/18 Unknown Rx metFORMIN [Glucophage] 500 mg PO BIDDIAB #60 tablet 03/22/18 Unknown Rx polyethylene glycoL 3350 [Miralax 17 gm PO QDAY PRN #10 packet 03/22/18 Unknown Rx 3350] Acetaminophen/Codeine [Tylenol 1 tab PO Q6H PRN 2 Days #8 tab 01/21/22 Unknown Rx /Codeine # 3 tab] ED Physical Exam - General Limitations: No Limitations General appearance: alert, in no apparent distress ED Course Vital Signs 01/21/22 13:10 Temperature 99.0 F Pulse Rate 75 Respiratory 12 Rate Blood Pressure 139/72 [Right] O2 Sat by Pulse 99 Oximetry ED Medical Decision Making - Lab Data Result diagrams: 01/21/22 13:39 01/21/22 13:39 - Radiology Data [facility] [address] [place] [address] Cat Scan Report Signed Patient: BRIE CHAPIN MR#: [id number] : 1960 Acct:[id number] Age/Sex: 61 / F ADM Date: 01/21/22 Loc: ED Attending Dr: Ordering Physician: LEONEL SAHNI NP Date of Service: 01/21/22 Procedure(s): CT abdomen pelvis wo con Accession Number(s): [id number] cc: LEONEL SAHNI NP CT ABDOMEN AND PELVIS WITHOUT CONTRAST INDICATION / CLINICAL INFORMATION: lower abdominal pain. TECHNIQUE: Axial CT images were obtained through the abdomen and pelvis without IV contrast. All CT scans at this location are performed using CT dose reduction for ALARA by means of automated exposure control. COMPARISON: 03/20/2018 FINDINGS: LOWER CHEST: No significant abnormality. LIVER: No significant abnormality. GALLBLADDER: No significant abnormality. BILE DUCTS: No significant abnormality. PANCREAS: No significant abnormality. SPLEEN: No significant abnormality. ADRENALS: No significant abnormality. RIGHT KIDNEY / URETER: No significant abnormality. LEFT KIDNEY / URETER: No significant abnormality. STOMACH / SMALL BOWEL: No significant abnormality. COLON: No significant abnormality. APPENDIX: No significant abnormality. PERITONEUM: No free fluid. No free air. No fluid collection. LYMPH NODES: No significant adenopathy. AORTA / ARTERIES: No significant abnormality. IVC / VEINS: No significant abnormality. URINARY BLADDER: No significant abnormality. REPRODUCTIVE ORGANS: No significant abnormality. ADDITIONAL FINDINGS: None. SKELETAL SYSTEM: No significant abnormality. IMPRESSION: 1. There is no obstruction, inflammation, or free air. There are no abnormal fluid collections. Signer Name: Gokul Dickey MD Signed: 01/21/2022 5:27 PM Workstation Name: [id number] Transcribed By: Dictated By: Gokul Dickey MD Electronically Authenticated By: Gokul Dickey MD Signed Date/Time: 01/21/221726 DD/ 23 TD/TT: Critical care attestation.: If time is entered above; I have spent that time in minutes in the direct care of this critically ill patient, excluding procedure time. ED Disposition Clinical Impression: Dysuria Abdominal pain Qualifiers: Abdominal location: lower abdomen, unspecified Qualified Code(s): R10.30 - Lower abdominal pain, unspecified Back pain Qualifiers: Back pain location: low back pain Chronicity: acute Back pain laterality: bilateral Sciatica presence: without sciatica Qualified Code(s): M54.50 - Low back pain, unspecified Disposition: 01 HOME / SELF CARE / HOMELESS Is pt being admited?: No Condition: Stable Instructions: Abdominal Pain, Adult, [id number], Acute Back Pain, Adult Prescriptions: Acetaminophen/Codeine [Tylenol /Codeine # 3 tab] 1 tab PO Q6H PRN 2 Days #8 tab PRN Reason: Pain , Severe (7-10) Referrals: RAD SOUZA MD [Staff Physician] - 3-5 Days
[2022-01-21 19:29] LABS: Mucus,Urine FEW /HPF
[2022-01-21 19:40] LABS: Color,Urine Yellow (Yellow)
[2022-01-21] MEDS ORDERED: HYDROcodone/ACETAMINOPHEN 5-325 MG TAB PO ONE (20:00)
== END 2022-01-21 23:01 | disposition home or self-care (01) ==
LOC: ED 12:21
DX: R10.9 Unspecified abdominal pain (principal); I10 Essential (primary) hypertension; E11.9 Type 2 diabetes mellitus without complications; J45.909 Unspecified asthma, uncomplicated
CPT/HCPCS: 36415; 74176; 80048; 80076; 81001; 85025; 99284